=== PATIENT | female | born 1960 | race Two or more races ===

== ENCOUNTER 2017-07-10 06:48 | Day surgery (SDC) | payer OTHER, MEDICAID ==
[2017-07-10] MEDS ORDERED: PROPOFOL 40 ML (09:21)
== END 2017-07-10 11:22 | disposition home or self-care (01) ==
LOC: GIL 06:48
DX: Z12.11 Encounter for screening for malignant neoplasm of colon (principal); K64.8 Other hemorrhoids; I10 Essential (primary) hypertension
CPT/HCPCS: 45378